=== PATIENT | male | born 1945 | race Hispanic/Latino ===

== ENCOUNTER 2017-02-09 15:47 | Emergency (ER) | payer MEDICARE, OTHER ==
[2017-02-09 16:06] VITALS: BMI 25.1
[2017-02-09 16:10] VITALS: TEMP 98.6; O2SAT 98
--- NOTE | 2017-02-09 17:08 | C.PDOC ---
History Of Present Illness 71 y/o male, with history of schizophrenia, presents to ED with complaint of bilateral foot pain. Patient reported this complaint to triage nurse, but when approached for evaluation, patient was not speaking. Pt only intermittently speaking during duration of visit. Crisis dependency case manager evaluated patient in ER as well. Patient noted complaint of pain on urination to ER nurse. Discussed case with son of the patient via phone who states this is patient's baseline. No other complaints were noted. Time Seen by Provider: 02/09/17 16:40 Chief Complaint (Nursing): Abnormal Skin Integrity History Per: Patient History/Exam Limitations: no limitations Onset/Duration Of Symptoms: Days Current Symptoms Are (Timing): Still Present Location Of Injury: Right: Foot, Left: Foot Recent travel outside of the [place]: No Past Medical History Reviewed: Historical Data, Nursing Documentation, Vital Signs Vital Signs: Last Vital Signs Temp 98.6 F 02/09/17 16:06 Pulse 78 02/09/17 18:59 Resp 16 02/09/17 18:59 BP 128/84 02/09/17 18:59 Pulse Ox 98 02/09/17 19:21 - Medical History PMH: Benign Prostatic Hyperplasia, Chronic Kidney Disease (SEE COMMENT), Schizophrenia - [facility] Procedures INSERT INDWELLING CATH (09/14/13) OTH TRANSURETHRAL PROSTATECTOMY (09/26/13) TU BLADDER CLEARANCE (09/19/13) Family History: States: Unknown Family Hx - Social History Hx Tobacco Use: No Hx Alcohol Use: No Hx Substance Use: No - Immunization History Hx Tetanus Toxoid Vaccination: No Hx Influenza Vaccination: No Hx Pneumococcal Vaccination: No Review Of Systems Except As Marked, All Systems Reviewed And Found Negative. Constitutional: Negative for: Fever, Chills Respiratory: Negative for: Cough Gastrointestinal: Negative for: Nausea, Vomiting Genitourinary: Positive for: Dysuria Musculoskeletal: Positive for: Foot Pain (bilateral) Skin: Negative for: Rash Neurological: Negative for: Weakness, Numbness Physical Exam - Physical Exam Appears: Non-toxic, No Acute Distress Skin: Warm, Dry Head: Atraumatic, Normacephalic Chest: Symmetrical Cardiovascular: Rhythm Regular Respiratory: Normal Breath Sounds, No Rales, No Rhonchi, No Wheezing Gastrointestinal/Abdominal: Soft, No Tenderness, No Distention, No Guarding, No Rebound Back: Normal Inspection Extremity: Normal ROM, Capillary Refill (< 2 sec. ), Other (open blister at base of left pinky toe, scaly skin between toes) Extremity: Bilateral: Normal Color And Temperature Pulses: Left Femoral: Normal, Right Femoral: Normal Neurological/Psych: Oriented x3 ED Course And Treatment O2 Sat by Pulse Oximetry: 98 (RA) Pulse Ox Interpretation: Normal Medical Decision Making Medical Decision Making: pt seen by crisis; not speaking to them; pt's son called and came to ED. son sts pt is at baseline behavior. Disposition Counseled Patient/Family Regarding: Diagnosis, Need For Followup, Rx Given - Disposition Referrals: Sarah Roy MD [Medical Doctor] - [facility] [Outside] Disposition: HOME/ ROUTINE Disposition Time: 18:45 Condition: STABLE Additional Instructions: Michell un seguimiento en la clnica de podologa y con connors mdico. Vuelva al ER para cualquier dolor, fiebre, dolor de espalda peores. Vmitos, no mantener la medicina baja o cualquier otra preocupacin. Prescriptions: Acetaminophen [Tylenol 325mg tab] 650 mg PO TID #30 tab Clotrimazole 1% Cream [Lotrimin 1%] 30 gm EXT BID #1 tube Nitrofurantoin Macrocrystals [Macrobid] 100 mg PO BID #14 cap Instructions: Urinary Tract Infection in Men (ED), Tinea Pedis (ED) Forms: Gen Discharge Inst Maltese Print Language: PARAGUAYAN - Clinical Impression Clinical Impression: Tinea pedis, UTI (lower urinary tract infection) - PA / [employer]ING [employer] / Resident Statement MD/DO has reviewed & agrees with the documentation as recorded. - Scribe Statement The provider has reviewed the documentation as recorded by the Willian Wong All medical record entries made by the Willian were at my direction and personally dictated by me. I have reviewed the chart and agree that the record accurately reflects my personal performance of the history, physical exam, medical decision making, and the department course for this patient. I have also personally directed, reviewed, and agree with the discharge instructions and disposition.
[2017-02-09 17:46] LABS: RBC URINE 38 /hpf (0-3); URINE BACTERIA MOD (<OCC); URINE BILIRUBIN NEGATIVE (NEGATIVE); URINE BLOOD 3+ (NEGATIVE); URINE COLOR Yellow (YELLOW); URINE GLUCOSE (UA) NORMAL (Normal); URINE KETONE TRACE mg/dL (NEGATIVE); URINE LEUKOCYTE ESTERASE 3+ Leu/uL (Negative); URINE PROTEIN 1+ mg/dL (NEGATIVE); URINE UROBILINOGEN NORMAL mg/dL (0.2-1.0); WBC URINE 66 /hpf (0-5)
[2017-02-09 19:03] VITALS: BP 128/84; PULSE 78; RESP 16
== END 2017-02-09 19:06 | disposition home or self-care (01) ==
LOC: C.ER 15:47
DX: B35.3 Tinea pedis (principal); N39.0 Urinary tract infection, site not specified

== ENCOUNTER 2017-02-10 15:53 | Emergency (ER) | payer MEDICARE, OTHER ==
[2017-02-10 15:54] VITALS: BMI 25.1
[2017-02-10 16:03] VITALS: BP 129/88; PULSE 79; RESP 18; TEMP 98.5; O2SAT 96
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
== END 2017-02-10 16:47 | disposition home or self-care (01) ==
LOC: C.ER 15:53
DX: F20.9 Schizophrenia, unspecified (principal)

== ENCOUNTER 2017-06-05 18:14 | Emergency (ER) | payer MEDICARE, OTHER ==
[2017-06-05 18:24] VITALS: BMI 23.2
[2017-06-05 19:02] LABS: BASO # 0.1 K/uL (0.0-0.2); BASO % 1.3 % (0.0-2.0); EOS # 0.4 K/uL (0.0-0.7); EOS % 6.7 % (0.0-4.0); HEMATOCRIT 39.2 % (35.0-51.0); LYMPH # 2.2 K/uL (1.0-4.3); LYMPH % 39.4 % (20.0-40.0); MEAN CELL VOLUME 98.5 fL (80.0-94.0); MEAN CORPUSCULAR HEMOGLOBIN 33.4 pg (27.0-31.0); MEAN CORPUSCULAR HGB CONC 33.9 g/dL (33.0-37.0); MEAN PLATELET VOLUME 9.2 fL (7.2-11.7); MONO # 0.5 K/uL (0.0-0.8); MONO % 8.7 % (0.0-10.0); RED CELL DISTRIBUTION WIDTH 13.4 % (11.5-14.5); WHITE BLOOD COUNT 5.7 K/uL (4.8-10.8)
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
[2017-06-05 19:08] LABS: CHLORIDE 107 mmol/L (98-107); POTASSIUM 4.4 mmol/L (3.6-5.2); SODIUM 141 mmol/L (132-148)
[2017-06-05 19:10] LABS: GFR AFRICAN-AMERICAN > 60
[2017-06-05 19:11] LABS: ALB/GLOB RATIO 1.4 (1.0-2.1); ALKALINE PHOSPHATASE 90 U/L (38-126); ALT/SGPT 30 U/L (21-72); AST/SGOT 22 U/L (17-59); BILIRUBIN,TOTAL 0.9 mg/dL (0.2-1.3); BLOOD UREA NITROGEN 17 mg/dL (9-20); CALCIUM 9.8 mg/dl (8.6-10.4); CARBON DIOXIDE 23 mmol/L (22-30); GLUCOSE,RANDOM 84 mg/dL (75-110); TOTAL PROTEIN 6.7 g/dL (6.3-8.3)
[2017-06-05 20:50] VITALS: BP 110/75; PULSE 49; RESP 18; TEMP 98.1; O2SAT 98
--- NOTE | 2017-06-06 08:26 | RAD ---
Chest x-ray two views History: Right-sided pleuritic pain. Comparison: 09/18/2013 Findings: Hyperinflation suggestive for COPD and or emphysematous changes. Biapical pleural thickening. Diffuse increased interstitial lung markings. Mild patchy increased markings at the right lung base. Few scattered nodular densities in both lung moyer. Tortuous ectatic aorta. Heart size within normal limits. Degenerative changes in the spine and shoulders. Impression: Hyperinflation suggestive for COPD and or emphysematous changes. Biapical pleural thickening. Diffuse increased interstitial lung markings. Mild patchy increased markings at the right lung base. Few scattered nodular densities in both lung moyer. Tortuous ectatic aorta.
--- NOTE | 2017-06-07 21:56 | CARD ---
APPROVED REPORT EKG Measurement Heart [id number] <Conclusion> Sinus bradycardia with 1st degree AV block Possible Left atrial enlargement Borderline ECG
== END 2017-06-05 20:45 | disposition home or self-care (01) ==
LOC: C.ER 18:14
DX: R07.81 Pleurodynia (principal)
CPT/HCPCS: 71020; 80053; 82550; 84484; 85025; 85378; 93005; 96374; 99284; J1885

== ENCOUNTER 2018-02-01 16:43 | Emergency (ER) | payer MEDICARE, OTHER ==
[2018-02-01 16:43] VITALS: BMI 25.1
[2018-02-01 19:36] LABS: BASO # 0.1 K/uL (0.0-0.2); EOS # 0.1 K/uL (0.0-0.7); HEMOGLOBIN 13.8 g/dL (12.0-18.0); LYMPH # 1.3 K/uL (1.0-4.3); LYMPH % 23.9 % (20.0-40.0); MEAN CELL VOLUME 97.6 fL (80.0-94.0); MEAN CORPUSCULAR HEMOGLOBIN 33.8 pg (27.0-31.0); MEAN CORPUSCULAR HGB CONC 34.7 g/dL (33.0-37.0); MEAN PLATELET VOLUME 8.8 fL (7.2-11.7); MONO # 0.5 K/uL (0.0-0.8); MONO % 8.3 % (0.0-10.0); NEUT # 3.6 K/uL (1.8-7.0); NEUT % 65.8 % (50.0-75.0); NRBC % 0.1 % (0.0-2.0); RBC 4.08 Mil/uL (4.40-5.90); RED CELL DISTRIBUTION WIDTH 14.1 % (11.5-14.5); WHITE BLOOD COUNT 5.5 K/uL (4.8-10.8)
[2018-02-01 19:44] LABS: INR 1.1
[2018-02-01 19:54] LABS: ALB/GLOB RATIO 1.4 (1.0-2.1); ALBUMIN 3.7 g/dL (3.5-5.0); ALT/SGPT 25 U/L (21-72); AST/SGOT 14 U/L (17-59); BLOOD UREA NITROGEN 18 mg/dL (9-20); GFR AFRICAN-AMERICAN > 60; GFR NON-AFRICAN AMERICAN > 60
[2018-02-01 20:23] VITALS: RESP 18
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
[2018-02-01 20:52] VITALS: BP 116/75; PULSE 62; TEMP 98.4; O2SAT 98
--- NOTE | 2018-02-02 14:43 | CARD ---
APPROVED REPORT EKG Measurement Heart [id number] <Conclusion> Sinus bradycardia with 1st degree AV block Otherwise normal ECG
== END 2018-02-01 21:06 | disposition home or self-care (01) ==
LOC: C.ER 16:43
DX: F41.9 Anxiety disorder, unspecified (principal); F31.9 Bipolar disorder, unspecified; F20.9 Schizophrenia, unspecified; N18.9 Chronic kidney disease, unspecified